=== PATIENT | female | born 1970 | race Two or more races ===

== ENCOUNTER 2016-05-25 08:26 | Emergency (ER) | payer MEDICAID ==
[~2016-05-25] VITALS: Ht 160 cm; Wt 58.5 kg
--- NOTE | 2016-05-25 08:54 | NUR ---
bib self, cc: vaginal bleed since apr 30, abdominal pain lower quadrant, patient is able to ambulate, patient is verbally responsive, has been seen at [place] 5 days prior to arrival, labs and diagnostics have brought in.
[2016-05-25 09:02] LABS: BASOPHILS % (AUTO) 0.6 % (0.0-2.0); EOSINOPHILS # (AUTO) 0.1 /CMM (0.0-0.7); EOSINOPHILS % (AUTO) 1.1 % (0.0-6.0); HEMATOCRIT 38 % (33-45); HEMOGLOBIN 12.5 g/dL (11.5-14.8); LYMPHOCYTES # (AUTO) 1.5 /CMM (0.8-4.8); LYMPHOCYTES % (AUTO) 22.6 % (20.0-44.0); MEAN CORPUSCULAR HEMOGLOBIN 28 PG (26.0-33.0); MEAN CORPUSCULAR HGB CONC 33 g/dl (31.0-36.0); MEAN CORPUSCULAR VOLUME 84 fL (82-100); MONOCYTES # (AUTO) 0.3 /CMM (0.1-1.30); MONOCYTES % (AUTO) 4.6 % (2.0-12.0); NEUTROPHILS # (AUTO) 4.7 /CMM (1.8-8.9); NEUTROPHILS % (AUTO) 71.1 % (43.0-81.0); PLATELET COUNT (AUTO) 251 /CMM (150-450); RED BLOOD CELL COUNT(AUTO) 4.48 MIL/uL (4.0-5.2); WHITE BLOOD COUNT (AUTO) 6.6 K/uL (4.3-11.0)
--- NOTE | 2016-05-25 09:35 | NUR ---
Patient discharged to home in stable condition. Written and verbal after care instructions given. Patient verbalizes understanding of instruction. nad noted upon discharge, given referral to obgyn, will follow up with pmd
[2016-05-25 09:36] VITALS: BP 130/72
== END 2016-05-25 09:36 | disposition home or self-care (01) ==
LOC: ER 08:28
DX: N93.8 Other specified abnormal uterine and vaginal bleeding (principal); N83.201 Unspecified ovarian cyst, right side
CPT/HCPCS: 36415; 84703; 85025; 99284; A4606; Z7610